=== PATIENT | male | born 1945 | race Caucasian/White ===

== ENCOUNTER 2019-07-23 14:15 | Observation (INO) | payer MEDICARE ==
[~2019-07-23] VITALS: Ht 170.2 cm; Wt 67.7 kg
[2019-07-23 14:54] LABS: BASOPHILS # (AUTO) 0.1 X10'3 (0-0.2); BASOPHILS % (AUTO) 0.7 % (0-1); EOSINOPHILS # (AUTO) 0.3 X10'3 (0-0.9); EOSINOPHILS % (AUTO) 3.7 % (0-6); HEMATOCRIT 38.7 % (42.0-52.0); HEMOGLOBIN 13.3 g/dl (14.0-17.9); LYMPHOCYTES # (AUTO) 1.7 X10'3 (1.1-4.8); LYMPHOCYTES % (AUTO) 19.5 % (21-51); MEAN CORPUSCULAR HEMOGLOBIN 29.8 PG (27.0-31.0); MEAN CORPUSCULAR HGB CONC 34.4 g/dL (33.0-36.5); MEAN CORPUSCULAR VOLUME 86.8 FL (78-98); MEAN PLATELET VOLUME 8.1 FL (7.4-10.4); MONOCYTES # (AUTO) 0.6 X10'3 (0-0.9); MONOCYTES % (AUTO) 6.4 % (2-12); NEUTROPHILS % (AUTO) 69.7 % (42-75); PLATELET COUNT 308 X10'3 (140-440); RED BLOOD COUNT 4.46 X10'6 (4.70-6.10); RED CELL DISTRIBUTION WIDTH 14.1 % (11.5-14.5); WHITE BLOOD COUNT 8.7 X10'3 (4.5-11.0)
[2019-07-23 15:09] LABS: ALANINE AMINOTRANSFERASE 37 U/L (12-78); ALBUMIN/GLOBULIN RATIO 1.1 (1.1-1.5); ALKALINE PHOSPHATASE 59 IU/L (46-116); ANION GAP 9 (8-16); ASPARTATE AMINO TRANSFERASE 17 U/L (10-37); BILIRUBIN,TOTAL 0.4 MG/DL (0.1-1.0); BLOOD UREA NITROGEN 38 MG/DL (7-18); BUN/CREATININE RATIO 21.7 (5.4-32.0); CALCIUM 9.4 MG/DL (8.5-10.1); CHLORIDE 104 MMOL/L (99-107); CREATININE 1.75 MG/DL (0.60-1.10); GLUCOSE 278 MG/DL (70-104); POTASSIUM 4.4 MMOL/L (3.5-5.1); SODIUM 140 MMOL/L (135-145); TOTAL CARBON DIOXIDE 27.2 MMOL/L (24-32); TOTAL PROTEIN 7.7 G/DL (6.4-8.2); eGFR 38 ML/MIN
[2019-07-23] MEDS ORDERED: normal saline 1000ML IV soln IVB ONE (16:50)
[2019-07-23] MEDS ORDERED: potassium Cl 20 mEq SR tablet PO PRN ×2 (16:55)
[2019-07-23] MEDS ORDERED: mag hydrox/Alum hydrox/simeth 30ml oral suspension PO PRN (16:55)
[2019-07-23] MEDS ORDERED: magnesium Cl slow-release 64mg tablet PO PRN (16:55)
[2019-07-23] MEDS: aspirin 325mg tablet PO SCH (16:55)
[2019-07-23] MEDS ORDERED: magnesium 2GM in 50ml NS 50 ML IV PRN (16:55)
[2019-07-23] MEDS ORDERED: magnesium 4gm in 100ml NS 100 ML IV PRN (16:55)
[2019-07-23] MEDS ORDERED: HYDROcodone/acetaminophen 10/325mg tab PO PRN (16:55)
[2019-07-23] MEDS ORDERED: potassium CL 10mEq/100ml bag 100 ML IV PRN ×2 (16:55)
[2019-07-23] MEDS ORDERED: ondansetron/PF 4mg/2ml inj IV PRN (16:55)
[2019-07-23] MEDS ORDERED: meclizine 12.5mg tablet PO PRN (16:55)
[2019-07-23] MEDS ORDERED: HYDROcodone/acetaminophen 5mg/325mg tablet PO PRN (16:55)
[2019-07-23] MEDS ORDERED: acetaminophen 325mg tablet PO PRN ×2 (16:55)
[2019-07-23] MEDS ORDERED: magnesium hydroxide 30ml (MOM) UD suspension PO PRN (16:55)
[2019-07-23] MEDS ORDERED: acetaminophen 650mg rectal suppository RC PRN (16:55)
--- NOTE | 2019-07-23 17:32 | NUR ---
DR. CAPPS AT BEDSIDE FOR ADMIT.
[2019-07-23 17:39] LABS: PHOSPHORUS 3.4 MG/DL (2.3-4.5)
[2019-07-23] MEDS ORDERED: METF500T20 PO (17:39)
[2019-07-23] MEDS ORDERED: GLIM4TAB7 PO (17:39)
[2019-07-23] MEDS ORDERED: FURO20TA4 PO (17:39)
--- NOTE | 2019-07-23 17:48 | NUR ---
BEDSIDE ECHO NOW.
[2019-07-23] MEDS ORDERED: LISI-604 PO (18:12)
[2019-07-23] MEDS ORDERED: ATOR20TA66 PO (18:12)
[2019-07-23] MEDS ORDERED: CLOP75TA35 PO (18:12)
[2019-07-23] MEDS: normal saline 1000ml 1,000 ML IV SCH (19:00)
--- NOTE | 2019-07-23 19:08 | NUR ---
patient back from mri patient tolerated well, patient in bed covers on eyes closed rr even un labored no observable s/s of acute stress at this time
--- NOTE | 2019-07-23 19:28 | NUR ---
CALLED REPORT TO BELEN SOUZA NO QUESTIONS OR CONCERNS AFTER ASSUMING CARE AFTER SBAR
[2019-07-23 19:30] VITALS: BP 161/83
--- NOTE | 2019-07-23 19:30 | NUR ---
Received report from Lizbeth SOUZA. Patient came up to floor via gurney. Patient able to walk to bed. Bed locked & low. Call light within reach.
[2019-07-23 19:33] LABS: HEMOGLOBIN A1C 8.4 % (4.5-6.2)
[2019-07-23] MEDS: K and/or MAG REPLACEMENT MC SCH (20:00)
--- NOTE | 2019-07-23 20:05 | NUR ---
Per Radiologist the mri/mra brain is negative for stroke.
[2019-07-23 20:59] VITALS: BP_SYST 116; BP_SYST 137; BP_SYST 149; BP_DIAS 55; BP_DIAS 66; BP_DIAS 75
[2019-07-23] MEDS ORDERED: temazepam 15mg capsule PO PRN (21:00)
[2019-07-23 22:00] VITALS: BP 149/75
[2019-07-23 22:01] LABS: CLARITY,URINE CLEAR (Clear); COLOR,URINE YELLOW (Yellow); GLUCOSE, URINE 250 mg/dl (Neg); KETONES,URINE NEGATIVE (Neg); LEUKOCYTE ESTERASE ,URINE NEGATIVE (Neg); NITRITES, URINE NEGATIVE (Neg); OCCULT BLOOD,URINE NEGATIVE (Neg); PROTEIN,URINE TRACE mg/dl (Neg); UROBILINOGEN,URINE 0.2 E.U/dL (0.2-1.0)
[2019-07-23 22:06] LABS: UA COLLECTION TYPE URINAL
[2019-07-23 22:09] LABS: BACTERIA,URINE NONE SEEN /HPF (Neg); HYALINE CASTS 0-3 /LPF (NEGATIVE); RBC,URINE NONE SEEN /HPF (0-2); SQUAMOUS EPITHELIAL CELL,UR FEW /LPF (FEW); WBC,URINE 0-4 /HPF (0-4)
[2019-07-24] MEDS: normal saline 1000ml 1,000 ML IV SCH ×2 (00:35→10:26)
[2019-07-24 02:00] VITALS: BP 121/65
[2019-07-24 02:59] LABS: BASOPHILS # (AUTO) 0.1 X10'3 (0-0.2); BASOPHILS % (AUTO) 0.7 % (0-1); EOSINOPHILS # (AUTO) 0.4 X10'3 (0-0.9); EOSINOPHILS % (AUTO) 6.1 % (0-6); HEMATOCRIT 33.8 % (42.0-52.0); HEMOGLOBIN 11.7 g/dl (14.0-17.9); LYMPHOCYTES # (AUTO) 2.6 X10'3 (1.1-4.8); LYMPHOCYTES % (AUTO) 34.8 % (21-51); MEAN CORPUSCULAR HEMOGLOBIN 30.2 PG (27.0-31.0); MEAN CORPUSCULAR HGB CONC 34.7 g/dL (33.0-36.5); MEAN CORPUSCULAR VOLUME 87.1 FL (78-98); MEAN PLATELET VOLUME 7.9 FL (7.4-10.4); MONOCYTES # (AUTO) 0.7 X10'3 (0-0.9); NEUTROPHILS # (AUTO) 3.6 X10'3 (1.8-7.7); NEUTROPHILS % (AUTO) 49.4 % (42-75); PLATELET COUNT 275 X10'3 (140-440); RED BLOOD COUNT 3.89 X10'6 (4.70-6.10); RED CELL DISTRIBUTION WIDTH 13.8 % (11.5-14.5); WHITE BLOOD COUNT 7.4 X10'3 (4.5-11.0)
[2019-07-24 03:04] LABS: ALANINE AMINOTRANSFERASE 28 U/L (12-78); ALBUMIN 3.2 G/DL (3.4-5.0); ALKALINE PHOSPHATASE 49 IU/L (46-116); ANION GAP 4 (8-16); ASPARTATE AMINO TRANSFERASE 15 U/L (10-37); BILIRUBIN,TOTAL 0.3 MG/DL (0.1-1.0); BLOOD UREA NITROGEN 36 MG/DL (7-18); BUN/CREATININE RATIO 24.2 (5.4-32.0); CALCIUM 8.4 MG/DL (8.5-10.1); CHLORIDE 108 MMOL/L (99-107); CREATININE 1.49 MG/DL (0.60-1.10); GLUCOSE 118 MG/DL (70-104); SODIUM 142 MMOL/L (135-145); TOTAL CARBON DIOXIDE 29.8 MMOL/L (24-32); TOTAL PROTEIN 6.3 G/DL (6.4-8.2); eGFR 46 ML/MIN
[2019-07-24 03:08] LABS: CHOL/HDL RATIO 5.3 (0.00-4.99); CHOLESTEROL 176 MG/DL (0-200); HDL CHOLESTEROL 33 MG/DL (35-60); LDL CHOLESTEROL 92 MG/DL (50-100); MAGNESIUM 1.9 MG/DL (1.5-2.4); PHOSPHORUS 4.1 MG/DL (2.3-4.5); TRIGLYCERIDES 287 MG/DL (20-135)
[2019-07-24 06:00] VITALS: BP 130/69
--- NOTE | 2019-07-24 06:28 | NUR ---
Problems reprioritized. Patient report given, questions answered & plan of care reviewed with Casimiro SOUZA.
[2019-07-24] MEDS: K and/or MAG REPLACEMENT MC SCH (07:48)
[2019-07-24] MEDS: aspirin 325mg tablet PO SCH (07:49)
[2019-07-24] MEDS ORDERED: atorvastatin 20mg tablet PO SCH (08:00)
[2019-07-24] MEDS ORDERED: clopidogrel 75mg tablet PO SCH (08:00)
[2019-07-24 08:20] VITALS: BP_SYST 115; BP_SYST 117; BP_SYST 125; BP_DIAS 57; BP_DIAS 59; BP_DIAS 64
[2019-07-24 10:00] VITALS: BP 140/69
--- NOTE | 2019-07-24 13:37 | NUR ---
DM consult: pt documented with A1c of 8.4. RD internal review and audit compliance visited pt at bedside and provided written and verbal DM education with referral to CDE course and RD contact information. Per MD note, reports pt stopped taking DM medication. Pt reports forgetting to take medication but is trying to remember. Pt states he is taking metformin and one other medication he can't recall. He reports currently seeing a doctor who will be setting him up with outpatient RD for better DM management. Pt endorses a great appetite and denies food allergies, difficulties chewing/swallowing, and constipation/diarrhea. LBM 07/22. Will continue to monitor. Addendum: 07/24/19 at [address] Amended: Links added. Addendum: 07/24/19 at [address] RD agree with note
--- NOTE | 2019-07-24 15:00 | NUR ---
Patient stable for discharge. Belongings gathered. PIV removed, cannula intact. Awaiting for ride home.
--- NOTE | 2019-07-28 12:03 | NUR ---
Case Management DC follow-up:spoke to pt via telephone. Reports, "doing pretty well", "feel great", "staying hydrated" Denies cp, emergent/acute general pain, abd pain, leg pain, SOB, resp distress, NV, blurry vision, dizziness, syncope episodes. Verbalizes understanding of med, why prescribed, taking as ordered/compliant, no ase noted r/t polypharmacy. Verbalizes understanding of s/s what would warrant 9-11/ER visit for evaluation. acknowledges need for scheduling/keeping follow ups w/PCP/[facility], specialists, referrals. needs met, questions answered at DC. No further questions at this time.
== END 2019-07-24 15:56 | disposition home or self-care (01) ==
LOC: ER 14:15 → ED HOLD 16:52 → ORTHO 4S 19:36
PROVIDERS: ADMIT Family Medicine; ATTEND Family Medicine
DX: R27.0 Ataxia, unspecified (principal); R11.2 Nausea with vomiting, unspecified; J44.9 Chronic obstructive pulmonary disease, unspecified; E11.51 Type 2 diabetes mellitus with diabetic peripheral angiopathy without gangrene; I10 Essential (primary) hypertension; E78.5 Hyperlipidemia, unspecified; E78.00 Pure hypercholesterolemia, unspecified; M19.90 Unspecified osteoarthritis, unspecified site; Z87.891 Personal history of nicotine dependence; Z79.84 Long term (current) use of oral hypoglycemic drugs; Z79.899 Other long term (current) drug therapy; Z88.1 Allergy status to other antibiotic agents
CPT/HCPCS: 36415; 70450; 70544; 70551; 71045; 80053; 80061; 81001; 82948; 83036; 83735; 84100; 84443; 84484; 85025; 87081; 93005; 93306; 93880; 96360; 96361; 97161; 97530; 99285; G0378; J7030